=== PATIENT | male | born 1995 | race Caucasian/White ===

== ENCOUNTER 2016-08-25 09:45 | Emergency (ER) | payer OTHER ==
[2016-08-25 09:48] VITALS: BP 138/85
--- NOTE | 2016-08-25 10:30 | RAD ---
Right foot, 3 views, 08/25/2016: History: Foot injury, puncture wound, possible foreign body No fracture or dislocation is identified. No radiopaque foreign body is evident in the soft tissues. IMPRESSION: No significant abnormality is detected.
--- NOTE | 2016-08-25 15:49 | ED.ADGEN ---
Past History Past Medical History: No Pertinent History Past Surgical History: No Surgical History Alcohol Use: None Drug Use: None Adult General Chief Complaint Chief Complaint Foreign left heal. HPI HPI Patient is a 20 year old who presents with left heal foreign body sensation in left heal after stepping on shard of broken glass last night. Review of Systems Review of Systems ROS as per HPI. Allergies Allergies Allergies Coded Allergies Type Severity Reaction Last Updated Verified No Known Drug Allergies 08/25/16 No Physical Exam Physical Exam Constitutional: Well developed, well nourished, no acute distress, non-toxic appearance. [] HENT: Normocephalic, atraumatic, bilateral external ears normal, oropharynx moist, no oral exudates, nose normal. Extremities: Left heel, subcentimeter superficial laceration with tiny speck of glass in wound Neurologic: Alert and oriented X 3, normal motor function, normal sensory function, no focal deficits noted. Psychologic: Affect normal, judgement normal, mood normal. Current Patient Data Vital Signs Vital Signs Date Time Temp Pulse Resp B/P Pulse Ox O2 Delivery O2 Flow Rate FiO2 08/25/16 09:48 98.5 82 18 98 Room Air EKG EKG [] Radiology/Procedures Radiology/Procedures [Left foot: No foreign body. Left heal body removal: Wound prepped with Betadine, injected with 1% lidocaine without epi and opened and probed with removal of 20/chart. No other foreign bodies present on further exploration. Impressions: 1. Left foot foreign body Course & Med Decision Making Course & Med Decision Making Pertinent Labs and Imaging studies reviewed. (See chart for details) [Small foreign body removed. Possible residual foreign body remains, although not evident on exam. Abx Rx given. ] Final Impression Final Impression [1. Left foot foreign body] Problems: Dragon Disclaimer Dragon Disclaimer This electronic medical record was generated, in whole or in part, using a voice recognition dictation system. GEORGIA VALDES DO Aug 25, 2016 15:49
== END 2016-08-25 10:33 | disposition home or self-care (01) ==
LOC: ER 09:45
DX: S90.852A Superficial foreign body, left foot, initial encounter (principal); W22.8XXA Striking against or struck by other objects, initial encounter; Y93.89 Activity, other specified; Y99.8 Other external cause status; Y92.89 Other specified places as the place of occurrence of the external cause
CPT/HCPCS: 10120; 73630; 99284-25